=== PATIENT | female | born 1960 | race Caucasian/White ===

== ENCOUNTER 2018-04-21 05:00 | Inpatient (IN) ==
[2018-04-13 11:35] LABS: Appearance,Urine CLEAR; Bilirubin,Urine NEG (NEG); Color,Urine STRAW; Glucose,Urine (UA) NEGATIVE (NEG); Leukocyte Esterase,Urine NEG /uL (NEG); Protein,Urine NEG (NEG); Urine Blood NEG mg/dL (<0.03); Urobilinogen,Urine NEG (NEG)
[2018-04-13 12:29] LABS: Basophils # (Auto) 0 K/mcL (0.0-0.3); Basophils % (Auto) 0.7 % (0.0-2.0); Eosinophils # (Auto) 0.1 K/mcL (0.0-0.7); Granulocytes % (Auto) 65.8 % (38.0-78.0); Lymphocytes # (Auto) 1.2 K/mcL (1.5-4.8); Lymphocytes % (Auto) 21.8 % (15.5-49.0); Mean Cell Volume 90.8 fL (80.0-100.0); Mean Corpuscular HGB Conc 33.4 g/dL (31.0-36.0); Mean Corpuscular Hemoglobin 30.4 pg (26.0-34.0); Monocytes # (Auto) 0.6 K/mcL (0.1-0.9); Monocytes % (Auto) 10.7 % (1.0-12.0); Platelet Count 261 K/mcL (140-440); RBC 4.45 M/mcL (4.00-5.20); Red Cell Distribution Width 13.5 % (11.5-14.5)
[2018-04-13 12:58] LABS: Blood Urea Nitrogen 14 mg/dl (6-20)
[2018-04-21] MEDS ORDERED: PREGABALIN 75 MG CAPSULE PO SCH (07:00)
[2018-04-21] MEDS ORDERED: ceFAZolin 1 GM VIAL IV SCH (07:00)
[2018-04-21] MEDS ORDERED: 0.9 % SODIUM CHLORIDE 9 ML, KETOROLAC 30 MG, ROPIVACAINE HCL/PF 49.5 ML, EPINEPHrine 0.... IJ SCH (07:00)
[2018-04-21] MEDS ORDERED: oxyCODONE 10 MG TAB.ER.12H PO SCH (07:00)
[2018-04-21] MEDS ORDERED: PROPOFOL 200 MG/20 ML VIAL IV ONE (07:40)
[2018-04-21] MEDS ORDERED: GLYCOPYRROLATE 0.2 MG/ML VIAL IV ONE (07:40)
[2018-04-21] MEDS ORDERED: ROPIVACAINE HCL/PF 20 ML VIAL IJ ONE (07:40)
[2018-04-21] MEDS ORDERED: ONDANSETRON 4 MG/2 ML VIAL IV ONE (07:40)
[2018-04-21] MEDS ORDERED: DEXAMETHASONE 10 MG/ML VIAL IV ONE (07:40)
[2018-04-21] MEDS ORDERED: LIDOCAINE HCL/PF 100 MG/5 ML SYRINGE IV ONE (07:40)
[2018-04-21] MEDS ORDERED: MIDAZOLAM 5 MG/5 ML VIAL IV ONE (07:40)
[2018-04-21] MEDS ORDERED: PHENYLEPHRINE 10 MG/ML VIAL IV ONE (07:40)
[2018-04-21] MEDS ORDERED: TRANEXAMIC ACID 1,000 MG/10 ML VIAL IV ONE (07:40)
[2018-04-21] MEDS ORDERED: fentaNYL 100 MCG/2 ML VIAL IV ONE (07:40)
[2018-04-21] MEDS ORDERED: KETAMINE 100 MG/ML ML IV ONE (07:40)
[2018-04-21] MEDS ORDERED: METHOCARBAMOL 1,000 MG/10 ML VIAL IV PRN (08:09)
[2018-04-21] MEDS ORDERED: ACETAMINOPHEN 1,000 MG/100 ML BOTTLE IV ONE (08:09)
[2018-04-21] MEDS ORDERED: KETOROLAC 30 MG/ML VIAL IV PRN (08:09)
[2018-04-21] MEDS ORDERED: ONDANSETRON 4 MG/2 ML VIAL IV PRN ×2 (08:09→09:09)
[2018-04-21] MEDS ORDERED: BENZOCAINE/MENTHOL 1 LOZENGE PO PRN ×2 (08:09→09:09)
[2018-04-21] MEDS ORDERED: fentaNYL 100 MCG/2 ML VIAL IV PRN (08:09)
[2018-04-21] MEDS ORDERED: NALOXONE HCL 0.4 MG/ML VIAL IV PRN (08:09)
[2018-04-21] MEDS ORDERED: LACTATED RINGERS 250 ML IV PRN (08:09)
[2018-04-21] MEDS ORDERED: FLUMAZENIL 0.1 MG/ML ML IV PRN (08:09)
[2018-04-21] MEDS ORDERED: IPRATROPIUM/ALBUTEROL 3 ML AMPUL.NEB NEB PRN (08:09)
[2018-04-21] MEDS ORDERED: LACTATED RINGERS 1,000 ML IV SCH (08:15)
[2018-04-21] MEDS ORDERED: MAGNESIUM HYDROXIDE 30 ML ORAL.SUSP PO PRN (09:09)
[2018-04-21] MEDS ORDERED: POLYETHYLENE GLYCOL 3350 17 GM PACKET PO PRN (09:09)
[2018-04-21] MEDS ORDERED: FLEETS ADULT ENEMA PR PRN (09:09)
[2018-04-21] MEDS ORDERED: BISACODYL 10 MG SUPP.RECT PR PRN (09:09)
[2018-04-21] MEDS ORDERED: TRANEXAMIC ACID 1,000 MG/10 ML VIAL IV SCH (09:09)
--- NOTE | 2018-04-21 09:09 | Brief Operative Note ---
Date of procedure: 04/21/18 Pre-op diagnosis: Left knee severe DJD Post-op diagnosis: same Procedure: Left robotic assisted total knee arthroplasty Grafts/Implants: Yes ([place] Triathlon CR 3 femur, 3 tibia, 9mm insert, 33 patella) Anesthesia: spinal, GLMA Findings: arthritis Complications: none Surgeon: Billy Ann Neurosurgical Nurse: Eduardo Chino Estimated blood loss (cc): 30 Specimens Removed/Pathology: none sent Condition: stable Disposition: PACU
--- NOTE | 2018-04-21 09:41 | Operative Note ---
DATE OF OPERATION: 04/21/2018 PREOPERATIVE DIAGNOSIS: Left knee severe osteoarthritis. POSTOPERATIVE DIAGNOSIS: Left knee severe osteoarthritis. PROCEDURE PERFORMED: Left robotic-assisted total knee arthroplasty placing a [place] Triathlon size 3 cruciate-retaining femoral component, size 3 tibial baseplate with a 9 mm tibial insert and a 33 mm patellar button. SURGEON: Billy Ann M.D. AVP: Otf Chino PA-C. ANESTHESIA: Spinal plus general. DRAINS: None. SPECIMENS: Bone cuts which were discarded. BLOOD LOSS: 50 mL. COMPLICATIONS: None. POSTOPERATIVE CONDITION: Stable. INDICATIONS FOR SURGERY: This is a 58-year-old female who has had progressive worsening, longstanding knee pain. Radiographs showed severe [id number] patellofemoral osteoarthritis. FINDINGS AT SURGERY: As above. Post implantation showed good limb alignment, joint stability, and patellar tracking. PROCEDURE IN DETAIL: The patient had been seen preoperatively. Informed consent had been obtained after discussion of risks and benefits of surgery. Risks including, but not limited to, bleeding; infection, possibly requiring implant removal, prolonged IV antibiotics; injury to nerves, blood vessels, other surrounding structures; anesthetic risks; incomplete or no resolution of symptoms; stiffness; swelling; pain; instability; DVT and pulmonary embolus risks; and the possibility of needing further revision surgery. She understood these risks and wished to proceed. Correct operative site was marked, and then patient was taken to the operating room after spinal anesthesia was given. LMA general was given. The left lower extremity was then carefully prepped and draped in normal sterile fashion, and a time-out was performed verifying patient name, operative site, and plan. Esmarch was used to exsanguinate the extremity and tourniquet was inflated. Midline incision was made with a scalpel through skin and subcutaneous tissue. Irrisept was irrigated and a medial parapatellar arthrotomy made. Subperiosteal exposure was done of the anterior medial tibia. Anterior horns of the menisci were removed, as well as ACL transected. Femoral and tibial checkpoints were placed. Two stab incisions were made over the femur and two over the tibia and bicortical pins placed and the arrays connected. Hip center of rotation was verified, and then green probe was used to verify medial and lateral malleoli and then double-checks of our femoral and tibial check points. Blue probe was used to do our mapping. We used a rongeur to remove osteophytes. The spoons were used to check our flexion-extension gaps and then implants were adjusted to give us 17 mm gaps in all four compartments. We then used the robotic assistance to make our bone cuts. The tibia was subluxed forward then and a size 3 component placed with external rotation as bone coverage would allow. This was pinned into place. Boss reamer and keel punch used to prepare and then a keeled tibial trial was placed. Femur was elevated and posterior osteophytes removed with a curved osteotome and curet and then femoral trial was placed. We then trialed a 9 insert. The knee was taken into extension. We were about 10 degrees short of full extension. We went ahead and prepared the patella, freehand technique, removing 10 mm of bone. We sized this to a 33, which was medialized maximally, and then holes were drilled and the trial placed. Limited lateral facetectomy was performed. We then checked our patellar tracking, which was very good without any tilt or subluxation. We went ahead and opened implants while antibiotic cement was mixed. We irrigated the joint with Irrisept, after a minute pulse lavaged with saline. CO2 gun was used to clean and dry the cancellous bone surfaces and then we cemented the tibia. Excess cement removed. We cemented the femur and excess cement removed and then a 9 insert trial placed. The knee was taken into extension. The patellar button was cemented. We filled the joint with Irrisept and removed our checkpoints. We went ahead and removed the pins from the femur and tibia. We injected pain cocktail in the pericapsular and subcutaneous tissues. Once cement had fully hardened, we flexed the knee up. I did a final inspection and removed any excess cement. I injected pain cocktail in the posterior capsule after removing the 9 trial. I went ahead and checked with the 11 trial, but this was too tight, so we went ahead and opened a 9 insert. Irrisept was irrigated on the tray, and then the insert was impacted. The knee was then placed in about 45 degrees of flexion. We then irrigated with saline and then #2 FiberWire [id number] were used around the superior quadrant of the patella. Inferior quadrant was closed with #1 Vicryl [id number]. Running #1 Vicryl was used for patellar tendon and quad tendon. We did remove checkpoints prior to closure. Final Irrisept irrigation was done, and then after a minute final pulse lavage, and then 2-0 Monocryl for subcutaneous and chau for skin. Xeroform and sterile dressing were applied. Tourniquet was released. The patient was awakened, extubated, and transferred to recovery in stable condition. BJB:luis daniel Job ID: [id number] Doc ID: [id number] Billy Ann MD
[2018-04-21] MEDS: 0.9 % SODIUM CHLORIDE 1,000 ML IV SCH ×2 (10:11→20:26)
--- NOTE | 2018-04-21 10:21 | XRay Report ---
HISTORY: Postop knee replacement FINDINGS: There is a well positioned total knee prosthesis. No fracture is present. There is a large densely calcified plaque in the popliteal artery. IMPRESSION: Well-positioned left knee prosthesis Interpreted and Authenticated by: Hernan Mcneil 04/21/18
[2018-04-21] MEDS: KETOROLAC 30 MG/ML VIAL IV SCH ×3 (11:30→23:49)
[2018-04-21] MEDS: 0.9 % SODIUM CHLORIDE 10 ML SYRINGE IV SCH ×2 (14:20→20:28)
[2018-04-21] MEDS: oxyCODONE/APAP 5/325MG TABLET PO PRN ×3 (14:20→19:23)
[2018-04-21] MEDS: ceFAZolin 1 GM VIAL IV SCH ×2 (15:01→23:50)
[2018-04-21] MEDS: ASPIRIN 325 MG ENTERIC COATED TABLET PO SCH (20:27)
[2018-04-21] MEDS: DOCUSATE SODIUM 100 MG CAPSULE PO SCH (20:27)
[2018-04-21] MEDS ORDERED: SENNOSIDES 1 TABLET PO SCH (21:00)
[2018-04-21] MEDS: HYDROmorphone 2 MG/ML VIAL IV PRN (22:07)
[2018-04-22] MEDS: oxyCODONE/APAP 5/325MG TABLET PO PRN ×3 (00:39→09:53)
[2018-04-22] MEDS: KETOROLAC 30 MG/ML VIAL IV SCH (05:59)
[2018-04-22] MEDS: 0.9 % SODIUM CHLORIDE 10 ML SYRINGE IV SCH (06:02)
[2018-04-22] MEDS: HYDROmorphone 2 MG/ML VIAL IV PRN (06:05)
[2018-04-22] MEDS: 0.9 % SODIUM CHLORIDE 1,000 ML IV SCH (06:23)
--- NOTE | 2018-04-22 07:44 | Discharge Summary ---
Providers - Providers Patient information: Note initiated : 04/22/18 at 7:40 am Service Date, if different from initiated Date: [] Patient: Zoya Leos 58 y/o F admitted on 04/21/18 for Left Total Knee Arthroplasty Phu. Chief Complaint: [] Discharge date: 04/22/18 Hospitalization Hospital course: Pt was admitted for a TKA. Pt underwent the procedure on the day of admission and spent 1 night on the floor for IV pain meds, IV abx, and PT prior to home discharge. Pt will take ASA for DVT prophylaxis, attend out-pt PT and f/u at [facility] in 2 weeks. Discharge diagnosis: L knee OA Exam - Exam Clean and dry: Yes Weight bearing status: as tolerated Ortho Discharge - TKA - Patient Instructions Diet: Regular Diet Activity: activity as tolerated Total Knee Protocol: For Total Knee: Start ROM FRANK with stationary bike or rocking chair. Work on gaining full extension of knee. Posterior dislocation precautions provided. Hip abductor strengthening and gait training instructions provided. Apply Cryocuff as instructed. Dressing Care: May shower in 2 days - Follow Up Plan Follow Up Appointments: Eduardo Chino PA-C [Physician [employer]] - 05/06/18 8:40 am Disposition: Home, Self-Care Prognosis: Good Rehab Potential: Good Overall status at discharge: patient is progressing back to baseline - Orders For Discharge Prescriptions: Aspirin [Ecotrin] 325 mg PO BID #30 tab.ec oxyCODONE/APAP [Percocet 10-325Mg] 1 - 2 tab PO Q4-6HP PRN #60 tab PRN Reason: Pain Pending Studies Resuscitation Status Full Code Diet Regular Diet Start ThuApr 21 0911 Aspirin (Ecotrin) 325 mg PO BID [facility] Last Admin: 04/21/18 20:27 Dose: 325 mg Docusate Sodium (Colace) 100 mg PO BID [facility] Last Admin: 04/21/18 20:27 Dose: 100 mg Hydromorphone HCl (Dilaudid) 0 mg IV Q2HP PRN PRN Reason: PAIN LEVEL > 6 Last Admin: 04/22/18 06:05 Dose: 0.5 mg Admin: 04/21/18 22:07 Dose: 1 mg Sodium Chloride (Sodium Chloride 0.9%) 1,000 mls @ 100 mls/hr IV .Q10H [facility] Last Admin: 04/22/18 06:23 Dose: Admin: 04/21/18 20:26 Dose: Admin: 04/21/18 10:11 Dose: 100 mls/hr Ketorolac Tromethamine (Toradol) 30 mg IV Q6 [facility] Stop: 04/23/18 06:01 Last Admin: 04/22/18 05:59 Dose: 30 mg Admin: 04/21/18 23:49 Dose: 30 mg Admin: 04/21/18 17:52 Dose: 30 mg Admin: 04/21/18 11:30 Dose: 30 mg Oxycodone/Acetaminophen (Percocet 5-325 Mg) 0 tab PO Q4HP PRN PRN Reason: PAIN LEVEL 3-6 Last Admin: 04/22/18 04:39 Dose: 2 tab Admin: 04/22/18 00:39 Dose: 2 tab Admin: 04/21/18 19:23 Dose: 2 tab Admin: 04/21/18 15:00 Dose: 1 tab Admin: 04/21/18 14:20 Dose: 1 tab Senna (Senokot) 2 tab PO HS [facility] Last Admin: 04/21/18 20:27 Dose: 2 tab Sodium Chloride (Saline Flush) 10 ml IV Q8 [facility] Last Admin: 04/22/18 06:02 Dose: 10 ml Admin: 04/21/18 20:28 Dose: 10 ml Admin: 04/21/18 14:20 Dose: Not Given Shift Summary 04/22/18 05:05 Shift Summary by Tiny Friend&Kayode. Drsg to left leg had some breakthrough bleeding, reinforced last night, no new breakthrough bleeding noted this am. Up with SBA and FWW, voiding well in bathroom. Medicated about every 4 hours with 2 tabs percocet, 1mg Dilaudid x1 and scheduled Toradol. SL 18G IV to LFA. Calls for needs. Initialized on 04/22/18 05:05 - END OF NOTE
[2018-04-22] MEDS: DOCUSATE SODIUM 100 MG CAPSULE PO SCH (08:23)
[2018-04-22] MEDS: ASPIRIN 325 MG ENTERIC COATED TABLET PO SCH (08:23)
[2018-04-22] MEDS ORDERED: ACYCLOVIR 400 MG TABLET PO SCH (09:00)
== END 2018-04-22 10:30 | disposition home or self-care (01) | DRG 554 ==
LOC: MEDSUR 05:00
PROVIDERS: ADMIT Orthopaedic Surgery; ATTEND Orthopaedic Surgery
CPT/HCPCS: 97161